=== PATIENT | female | born 1970 | race African-American/Black ===

== ENCOUNTER 2020-08-13 17:48 | Inpatient (IN) ==
[2020-08-13 18:32] LABS: Basophils # 0.1 10*3/uL (0.0-0.2); Eosinophils % 0.2 % (0.00-10.9); Hematocrit 39.4 VOL% (35.7-47.0); Hemoglobin 11.5 GM/DL (12.0-16.0); Immature Granulocytes % 0.8 %; Immature Granulocytes Absolute 0.04 #; Lymphocytes # 1.7 10*3/uL (1.4-4.0); Lymphocytes % 33.2 % (21.3-54.2); Mean Corpuscular HGB Conc 29.2 GM/DL (32-36); Mean Corpuscular Volume 87.8 FL (87-102); Monocytes % 12.5 % (1.7-12.7); Neutrophils % 52.3 % (38.7-73.9); Red Blood Count 4.49 MC/CUMM (3.8-5.5); Red Cell Distribution Width 18.1 % (9.3-17.3); White Blood Count 5.2 T/CUMM (4-12)
[2020-08-13 18:35] LABS: Platelet Count 2 T/CUMM (130-400)
[2020-08-13 18:41] LABS: PT Patient Result 11.2 SECS (9.8-11.9)
[2020-08-13 18:47] LABS: Alanine Aminotransferase 15 U/L (13-56); Albumin 3.6 G/DL (3.4-5.0); Alkaline Phosphatase 58 U/L (45-117); Aspartate Amino Transferase 8 U/L (0-37); Bilirubin,Total < 0.39 MG/DL (0.2-1.0); Blood Urea Nitrogen 12 MG/DL (7-18); Calcium 8.8 MG/DL (8.5-10.1); Carbon Dioxide 23 MMOL/L (21-32); Estimated Glom Filtration Rate 56 ML/MIN; Glucose 88 MG/DL (74-106); Osmolality,Calculated 273.7 MOS/KG (273-304); Potassium 3.7 MMOL/L (3.5-5.1); Sodium 138 MMOL/L (136-145); Total Protein 9.3 G/DL (6.4-8.3); Troponin I < 0.015 NG/ML (0.00-0.045)
[2020-08-13] MEDS ORDERED: SODIUM CHLORIDE 0.9% 1,000 ML IV PRN (18:47)
[2020-08-13] MEDS ORDERED: GLUCAGON 1 MG VIAL IM PRN (19:58)
[2020-08-13] MEDS ORDERED: DEXTROSE 50% 25 GM/50 ML VIAL IV PRN (19:58)
[2020-08-13] MEDS ORDERED: ACETAMINOPHEN 325 MG TABLET PO PRN (20:04)
[2020-08-13] MEDS ORDERED: ONDANSETRON 4 MG/2 ML VIAL IV PRN (20:04)
[2020-08-13] MEDS ORDERED: ZALEPLON 5 MG CAPSULE PO PRN (20:04)
[2020-08-13 22:01] LABS: Bilirubin,Urine Negative (Negative); Blood, Urine Small mg/dL (Negative); Glucose,Urine (UA) Negative (Negative); Hyaline Casts,Urine 1 /LPF (0-3); Ketones,Urine Negative (Negative); Mucus,Urine Occasional /LPF (Occasional); Nitrite,Urine Negative (Negative); Protein,Urine Negative; RBC,Urine 6 /HPF (0-4); Squamous Epithelial Cell,Urine Occasional /HPF (0-10); Urine Appearance CLEAR (Clear); Urine Color Straw (Yellow); Urine Specific Gravity 1.015 (1.001-1.035); Urine Urobilinogen < 2.0 EU/DL (0.2-1.0); WBC,Urine 1 /HPF (0-6)
[2020-08-14] MEDS: methylPREDNISolone SOD SUC 125 MG/2 ML VIAL IV SCH ×3 (01:10→21:41)
[2020-08-14 04:11] LABS: Basophils % 0.4 % (0.0-0.8); Hematocrit 34.8 VOL% (35.7-47.0); Hemoglobin 10.6 GM/DL (12.0-16.0); Immature Granulocytes % 0.7 %; Immature Granulocytes Absolute 0.04 #; Lymphocytes # 0.9 10*3/uL (1.4-4.0); Lymphocytes % 16.3 % (21.3-54.2); Mean Corpuscular HGB Conc 30.5 GM/DL (32-36); Mean Corpuscular Volume 84.9 FL (87-102); Monocytes % 5.9 % (1.7-12.7); Neutrophils % 76.7 % (38.7-73.9); Red Cell Distribution Width 17.7 % (9.3-17.3); White Blood Count 5.5 T/CUMM (4-12)
[2020-08-14 04:29] LABS: Platelet Count 2 T/CUMM (130-400)
[2020-08-14 04:33] LABS: Hypochromasia 1+; Microcytosis 1+; Ovalocytes Few; Polychromasia Slight
[2020-08-14 04:34] LABS: Platelet Estimate Decreased
[2020-08-14 04:35] LABS: Alanine Aminotransferase 17 U/L (13-56); Albumin 3.6 G/DL (3.4-5.0); Alkaline Phosphatase 54 U/L (45-117); Aspartate Amino Transferase 12 U/L (0-37); Bilirubin,Total < 0.39 MG/DL (0.2-1.0); Blood Urea Nitrogen 14 MG/DL (7-18); Calcium 8.6 MG/DL (8.5-10.1); Carbon Dioxide 23 MMOL/L (21-32); Estimated Glom Filtration Rate 77 ML/MIN; Glucose 95 MG/DL (74-106); Osmolality,Calculated 275.7 MOS/KG (273-304); Potassium 3.9 MMOL/L (3.5-5.1); Sodium 138 MMOL/L (136-145); Total Protein 8.6 G/DL (6.4-8.3)
[2020-08-14 07:48] LABS: Total Protein (Chem) 9.3 G/DL (6.4-8.3)
[2020-08-14] MEDS ORDERED: IMMUNE GLOBULIN 10% 20 GM in PREMIX 1 EACH IV ONE (08:25)
[2020-08-14] MEDS: PANTOPRAZOLE 40 MG TABLET PO SCH (09:46)
[2020-08-14 10:04] LABS: Albumin (SPE) 5.2 G/DL (3.2-5.3); Albumin (SPE) Rel % 56.2 %; Alpha 1 (SPE) 0.2 G/DL (0.1-0.4); Alpha 2 (SPE) 0.7 G/DL (0.4-1.0); Alpha 2 (SPE) Rel % 7.8 %; Beta (SPE) 0.7 G/DL (0.5-1.1)
[2020-08-14 10:36] LABS: Gamma (SPE) 2.4 G/DL (0.7-1.7)
[2020-08-15 08:16] LABS: Hematocrit 34.8 VOL% (35.7-47.0); Hemoglobin 10.6 GM/DL (12.0-16.0); Immature Granulocytes Absolute 0.09 #; Lymphocytes % 10.2 % (21.3-54.2); Mean Corpuscular HGB Conc 30.5 GM/DL (32-36); Mean Corpuscular Volume 84.9 FL (87-102); Monocytes % 3.4 % (1.7-12.7); Neutrophils % 85.4 % (38.7-73.9); White Blood Count 9.3 T/CUMM (4-12)
[2020-08-15 08:20] LABS: Platelet Count 9 T/CUMM (130-400)
[2020-08-15 08:33] LABS: Hypochromasia 1+; Microcytosis 1+; Platelet Estimate Decreased
[2020-08-15] MEDS: methylPREDNISolone SOD SUC 125 MG/2 ML VIAL IV SCH ×2 (08:36→20:23)
[2020-08-15] MEDS: PANTOPRAZOLE 40 MG TABLET PO SCH (08:36)
[2020-08-15 08:37] LABS: Alanine Aminotransferase 14 U/L (13-56); Albumin 3.2 G/DL (3.4-5.0); Alkaline Phosphatase 46 U/L (45-117); Aspartate Amino Transferase 8 U/L (0-37); Bilirubin,Total < 0.39 MG/DL (0.2-1.0); Blood Urea Nitrogen 15 MG/DL (7-18); Calcium 8.7 MG/DL (8.5-10.1); Carbon Dioxide 23 MMOL/L (21-32); Estimated Glom Filtration Rate 77 ML/MIN; Glucose 113 MG/DL (74-106); Osmolality,Calculated 282.3 MOS/KG (273-304); Potassium 3.9 MMOL/L (3.5-5.1); Sodium 141 MMOL/L (136-145)
[2020-08-16 05:51] LABS: Hematocrit 32.9 VOL% (35.7-47.0); Hemoglobin 9.9 GM/DL (12.0-16.0); Immature Granulocytes % 2.5 %; Immature Granulocytes Absolute 0.19 #; Lymphocytes # 0.9 10*3/uL (1.4-4.0); Lymphocytes % 11.8 % (21.3-54.2); Mean Corpuscular HGB Conc 30.1 GM/DL (32-36); Mean Corpuscular Volume 86.6 FL (87-102); Neutrophils % 82.7 % (38.7-73.9); Red Cell Distribution Width 18.2 % (9.3-17.3); White Blood Count 7.6 T/CUMM (4-12)
[2020-08-16 06:11] LABS: Albumin 2.7 G/DL (3.4-5.0); Calcium 8.3 MG/DL (8.5-10.1); Osmolality,Calculated 283.3 MOS/KG (273-304); Total Protein 7.8 G/DL (6.4-8.3)
[2020-08-16 06:30] LABS: Platelet Count 7 T/CUMM (130-400)
[2020-08-16 06:32] LABS: Hypochromasia 1+; Microcytosis 1+; Platelet Estimate Decreased
[2020-08-16] MEDS ORDERED: IMMUNE GLOBULIN 10% 20 GM, IMMUNE GLOBULIN 10% 10 GM in PREMIX 1 EACH IV ONE (08:30)
[2020-08-16] MEDS: PANTOPRAZOLE 40 MG TABLET PO SCH (09:10)
[2020-08-16] MEDS: methylPREDNISolone SOD SUC 125 MG/2 ML VIAL IV SCH ×2 (09:10→21:34)
[2020-08-17 07:22] LABS: Hematocrit 33.3 VOL% (35.7-47.0); Immature Granulocytes % 1.6 %; Immature Granulocytes Absolute 0.12 #; Lymphocytes % 12.9 % (21.3-54.2); Mean Corpuscular Volume 87.9 FL (87-102); Monocytes % 4.1 % (1.7-12.7); NRBC # 0.02 10*3/uL; Neutrophils % 81.4 % (38.7-73.9); Red Blood Count 3.79 MC/CUMM (3.8-5.5); Red Cell Distribution Width 18.1 % (9.3-17.3); White Blood Count 7.6 T/CUMM (4-12)
[2020-08-17 07:32] LABS: Platelet Count 23 T/CUMM (130-400)
[2020-08-17 08:45] LABS: Alanine Aminotransferase 12 U/L (13-56); Albumin 2.7 G/DL (3.4-5.0); Alkaline Phosphatase 42 U/L (45-117); Aspartate Amino Transferase < 3 U/L (0-37); Blood Urea Nitrogen 20 MG/DL (7-18); Calcium 8.6 MG/DL (8.5-10.1); Carbon Dioxide 24 MMOL/L (21-32); Estimated Glom Filtration Rate 77 ML/MIN; Glucose 117 MG/DL (74-106); Osmolality,Calculated 280.5 MOS/KG (273-304); Potassium 4.3 MMOL/L (3.5-5.1); Sodium 139 MMOL/L (136-145); Total Protein 8.2 G/DL (6.4-8.3)
[2020-08-17] MEDS: methylPREDNISolone SOD SUC 125 MG/2 ML VIAL IV SCH ×2 (09:36→21:17)
[2020-08-17] MEDS: PANTOPRAZOLE 40 MG TABLET PO SCH (09:41)
[2020-08-18 06:06] LABS: Basophils % 0.1 % (0.0-0.8); Hematocrit 35.3 VOL% (35.7-47.0); Hemoglobin 10.8 GM/DL (12.0-16.0); Immature Granulocytes % 2.3 %; Immature Granulocytes Absolute 0.19 #; Lymphocytes # 1.1 10*3/uL (1.4-4.0); Lymphocytes % 13.1 % (21.3-54.2); Mean Corpuscular HGB Conc 30.6 GM/DL (32-36); Mean Corpuscular Volume 85.7 FL (87-102); Monocytes % 4.2 % (1.7-12.7); NRBC # 0.05 10*3/uL; Neutrophils % 80.3 % (38.7-73.9); Red Blood Count 4.12 MC/CUMM (3.8-5.5); Red Cell Distribution Width 17.6 % (9.3-17.3); White Blood Count 8.2 T/CUMM (4-12)
[2020-08-18 06:08] LABS: Platelet Count 31 T/CUMM (130-400)
[2020-08-18 06:34] LABS: Albumin 2.7 G/DL (3.4-5.0); Bilirubin,Total 0.6 MG/DL (0.2-1.0); Osmolality,Calculated 277.7 MOS/KG (273-304); Potassium 4.2 MMOL/L (3.5-5.1); Total Protein 8.4 G/DL (6.4-8.3)
[2020-08-18] MEDS: methylPREDNISolone SOD SUC 125 MG/2 ML VIAL IV SCH ×2 (09:05→20:17)
[2020-08-18] MEDS: PANTOPRAZOLE 40 MG TABLET PO SCH (09:05)
[2020-08-19 05:34] LABS: Basophils % 0.1 % (0.0-0.8); Hematocrit 34.6 VOL% (35.7-47.0); Hemoglobin 10.8 GM/DL (12.0-16.0); Immature Granulocytes % 2.5 %; Lymphocytes # 0.8 10*3/uL (1.4-4.0); Lymphocytes % 10.4 % (21.3-54.2); Mean Corpuscular HGB Conc 31.2 GM/DL (32-36); Mean Corpuscular Volume 84.4 FL (87-102); Monocytes % 5.5 % (1.7-12.7); NRBC # 0.05 10*3/uL; Neutrophils % 81.5 % (38.7-73.9); Platelet Count 51 T/CUMM (130-400); Red Cell Distribution Width 17.6 % (9.3-17.3)
[2020-08-19 06:01] LABS: Albumin 2.5 G/DL (3.4-5.0); Calcium 8.1 MG/DL (8.5-10.1); Hypochromasia 1+; Microcytosis 1+; Osmolality,Calculated 277.7 MOS/KG (273-304); Ovalocytes Slight; Potassium 4.1 MMOL/L (3.5-5.1); Total Protein 7.7 G/DL (6.4-8.3)
[2020-08-19 06:02] LABS: Platelet Estimate Decreased; Polychromasia Slight
[2020-08-19] MEDS: PANTOPRAZOLE 40 MG TABLET PO SCH (10:22)
[2020-08-19 11:05] VITALS: BP 130/78
== END 2020-08-19 13:34 | disposition home or self-care (01) | DRG 813 ==
LOC: N.ED 17:48 → N.EDINP 19:58 → SUATTDRO 19:58 → N.3E 08-14 15:56
PROVIDERS: ADMIT Family Medicine; ATTEND Internal Medicine